=== PATIENT | female | born 2000 | race Hispanic/Latino ===

== ENCOUNTER 2021-06-17 23:08 | Emergency (ER) | payer OTHER ==
[~2021-06-17] VITALS: Ht 165.1 cm; Wt 106.6 kg
[2021-06-17] MEDS ORDERED: IBUPROFEN 600 MG TAB PO STA (23:46)
[2021-06-17] MEDS ORDERED: IBUPROFEN 600 MG TAB ONE (23:57)
[2021-06-17] MEDS ORDERED: ONDANSETRON HCL 4 MG ORAL DISINTEGRATING TAB ONE (23:57)
[2021-06-18] MEDS ORDERED: ONDANSETRON HCL 4 MG ORAL DISINTEGRATING TAB PO ONE
[2021-06-18] MEDS ORDERED: PENICILLIN G BENZATHINE LA 1.2 MU TBX ONE (00:29)
[2021-06-18] MEDS ORDERED: PENICILLIN G BENZATHINE LA 1.2 MU TBX IM STA (00:29)
[2021-06-18 00:50] VITALS: BP 145/77
== END 2021-06-18 00:48 | disposition home or self-care (01) ==
LOC: FSED 23:30
DX: R50.9 Fever, unspecified (principal); J02.0 Streptococcal pharyngitis; R51.9 Headache, unspecified; M79.10 Myalgia, unspecified site; J45.909 Unspecified asthma, uncomplicated
CPT/HCPCS: 81003; 81025; 96372; 99282; J0561; Q0162

== ENCOUNTER 2022-08-14 19:55 | Emergency (ER) | payer OTHER ==
[~2022-08-14] VITALS: Ht 165.1 cm; Wt 100.7 kg
[2022-08-14] MEDS ORDERED: ALBUTEROL/IPRATROPIUM 3 ML NEB ONE (20:28)
[2022-08-14] MEDS ORDERED: ALBUTEROL/IPRATROPIUM 3 ML NEB NEB ONE (20:30)
[2022-08-14] MEDS ORDERED: THERAFLU FLU &1 EAC1 PO (20:41)
[2022-08-14] MEDS ORDERED: BENZONATATE200 MG PO (20:41)
[2022-08-14] MEDS ORDERED: PREDNISONE20 MG PO (20:41)
[2022-08-14] MEDS ORDERED: VENTOLIN HFA18 GM INH (20:41)
[2022-08-14 21:10] VITALS: BP 154/83
== END 2022-08-14 21:10 | disposition home or self-care (01) ==
LOC: FSED 20:08
DX: R05.9 Cough, unspecified (principal); J04.0 Acute laryngitis; J06.9 Acute upper respiratory infection, unspecified; J45.909 Unspecified asthma, uncomplicated
CPT/HCPCS: 71046; 83518; 87400; 99283

== ENCOUNTER 2024-07-11 04:16 | Emergency (ER) | payer OTHER ==
[~2024-07-11] VITALS: Ht 165.1 cm; Wt 95.3 kg
[~2024-07-11 04:16] MED LIST: BENZONATATE200 MG PO; DIPHENHYDRAMINE25 MG PO; EPIPEN JR0.15 MG/01 SQ; FAMOTIDINE20 MG PO; ONDANSETRON ODT4 MG PO; PREDNISONE20 MG PO; PREDNISONE50 MG PO; THERAFLU FLU &1 EAC1 PO; VENTOLIN HFA18 GM INH
[2024-07-11 04:22] VITALS: PULSE 99; RESP 18; TEMP 98.7
[2024-07-11] MEDS: AMOXICILLIN/CLAVULANATE K 875 MG TAB PO STA (05:02)
[2024-07-11] MEDS: KETOROLAC TROMETHAMINE 30 MG/ML VIAL IM STA (05:02)
[2024-07-11] MEDS ORDERED: AMOXICILLIN500 MG PO (05:07)
[2024-07-11] MEDS ORDERED: IBUPROFEN600 MG PO (05:08)
[2024-07-11 05:15] VITALS: BP 126/69; PULSE 99; RESP 18; TEMP 98.7; O2SAT 98
== END 2024-07-11 05:15 | disposition home or self-care (01) ==
LOC: FSED 04:35
DX: H66.93 Otitis media, unspecified, bilateral (principal); J45.909 Unspecified asthma, uncomplicated
CPT/HCPCS: 0223U; 83518; 87400; 96372; 99283; J1885